=== PATIENT | female | born 1955 | race Caucasian/White ===

== ENCOUNTER 2024-01-04 21:00 | Emergency (ER) | payer OTHER ==
[2024-01-04 21:32] LABS: #Basophils 0.1 thou/uL (0.0-0.2); #Eosinphils 0.1 thou/uL (0.0-0.7); #Lymphocytes 3.5 thou/uL (1.20-3.40); #Monocytes 0.8 thou/uL (0.11-0.59); #Neutrophils 3.3 thou/uL (1.40-6.50); %Basophils 0.8 % (0.0-1.0); %Eosinophils 1.5 % (0.0-10.0); %Lymphocytes 44.9 % (21.0-51.0); %Monocytes 10.8 % (0.0-10.0); Hematocrit 39.8 % (36.0-47.0); Hemoglobin 12.9 g/dL (12.0-16.0); Mean Corpuscular HGB CONC 32.5 g/dL (32.0-36.0); Mean Corpuscular Hemoglobin 33.5 pg (27.0-31.0); Mean Corpuscular Volume 103.1 fl (78.0-98.0); Mean Platelet Volume 6.7 fL (7.4-10.4); Platelet Count 157 10x3/uL (130-400); Red Blood Cell (RBC) Count 3.86 mill/uL (4.20-5.40); White Blood Cell (WBC) Count 7.7 10x3/uL (4.8-10.8)
[2024-01-04 21:36] LABS: Prothrombin Time 13.1 sec (12.0-14.7)
[2024-01-04 21:37] LABS: PTT 28.8 sec (22.9-36.1)
[2024-01-04] MEDS ORDERED: Aspirin 325 MG TAB ONE (21:39)
[2024-01-04] MEDS ORDERED: dilTIAZem 25 MG/5 ML VIAL ONE (21:40)
[2024-01-04] MEDS ORDERED: Aspirin Chewable 81 MG TAB ONE (21:44)
[2024-01-04 21:48] LABS: Troponin I Less than 0.010 ng/mL (< 0.028)
[2024-01-04] MEDS ORDERED: Lactated Ringer's 1,000 ML ONE (21:51)
[2024-01-04 22:14] LABS: ALT (SGPT) 17 U/L (8-55); AST (SGOT) 35 U/L (5-34); Albumin 4.5 g/dL (3.4-4.8); Alkaline Phosphatase 65 U/L (40-110); Anion Gap 16 mmol/L (10-20); BUN (Urea Nitrogen) 13 mg/dL (9.8-20.1); Bilirubin, Total 0.9 mg/dL (0.2-1.2); Calc. Creatinine Clearance 0 mL/min (70-130); Calcium 9.6 mg/dL (7.8-10.44); Carbon Dioxide 21 mmol/L (23-31); Chloride 107 mmol/L (98-107); Estimated GFR 73; Globulin 2.6 g/dL (2.4-3.5); Glucose 95 mg/dL (80-115); Magnesium 2.4 mg/dL (1.6-2.6); Potassium 4.1 mmol/L (3.5-5.1); Protein, Total 7.1 g/dL (5.8-8.1); Sodium 140 mmol/L (136-145)
[2024-01-04] MEDS ORDERED: dilTIAZem 30 MG TAB ONE ×2 (22:26→23:41)
[2024-01-04] MEDS ORDERED: Enoxaparin 60 MG (0.6 mL) SYRINGE ONE (23:10)
[2024-01-05 01:00] LABS: Troponin I Less than 0.010 ng/mL (< 0.028)
== END 2024-01-05 01:23 | disposition home or self-care (01) ==
LOC: MADERS 21:00
DX: I48.91 Unspecified atrial fibrillation (principal)
CPT/HCPCS: 71045; 80053; 83735; 84443; 84484; 85025; 85379; 85610; 85730; 93005; 96372; 96374; 96376; J1650; J7120